=== PATIENT | female | born 1965 | race Caucasian/White ===

== ENCOUNTER → 2021-09-23 | Outpatient (CLI) | payer OTHER ==
--- NOTE | 2021-09-24 13:50 | MM ---
Reason for exam: screening (asymptomatic). Baseline mammogram. History: Patient is postmenopausal and is nulliparous. Physical Findings: Nurse did not find any significant physical abnormalities on exam. MG Screening Mammo w CAD Bilateral CC, MLO, and XCCL view(s) were taken. There are scattered fibroglandular densities. Finding: There is a 6 mm circumscribed oval mass located 7 cm from the nipple in the upper outer quadrant, posterior, middle position of the right breast. There is no discrete abnormality on the left breast. ASSESSMENT: Incomplete: need additional imaging evaluation, BI-RAD 0 RECOMMENDATION: Ultrasound of the right breast. [facility] will attempt to contact patient to return for ultrasound.
== END | disposition home or self-care (01) ==
LOC: RADMAMWWP 09:14
PROVIDERS: ATTEND Family Medicine
DX: Z12.31 Encounter for screening mammogram for malignant neoplasm of breast (principal); Z78.0 Asymptomatic menopausal state
CPT/HCPCS: 77067

== ENCOUNTER → 2021-10-02 | Outpatient (CLI) | payer OTHER ==
--- NOTE | 2021-10-02 10:22 | USB ---
Reason for exam: additional evaluation requested from abnormal screening. History: Patient is postmenopausal and is nulliparous. Physical Findings: Breast exam preformed at baseline screening. US Breast Workup Limited RT Technologist: Carlyn Ceballos Right limited breast ultrasound including focal area of concern, retroareolar and axilla demonstrates no cystic or solid lesion seen. Given mammographic abnormality stereotactic core biopsy recommended. These results were verbally communicated with the patient and result sheet given to the patient on 10/02/21. ASSESSMENT: Suspicious, BI-RAD 4 RECOMMENDATION: Stereotactic core biopsy of the right breast. Called Dr. Arana's office with mammographic findings and has scheduled an appointment for the patient for 11/19/21 at 8:[address] Husain. Biopsy scheduled for 10/26/21 at 8:00. PRELIMINARY REPORT CALLED AND FAXED TO DR. HUSAIN ON 10/02/21.
== END | disposition home or self-care (01) ==
LOC: RADUSWWP 07:43
PROVIDERS: ATTEND Family Medicine
DX: R92.8 Other abnormal and inconclusive findings on diagnostic imaging of breast (principal); Z78.0 Asymptomatic menopausal state

== ENCOUNTER → 2021-10-26 | Day surgery (SDC) | payer OTHER ==
[2021-10-26 07:22] VITALS: RESP 16
[2021-10-26 08:36] VITALS: BP 130/86; PULSE 79; TEMP 98.1
--- NOTE | 2021-10-26 19:07 | MM ---
EXAMINATION TYPE: MG stereo VAD BX RT DATE OF EXAM: 10/26/2021 COMPARISON: 09/23/2021 and 10/02/2021 CLINICAL HISTORY: 56-year-old female R92.8, referred for stereotactic biopsy of 9:00 right breast mass. TECHNIQUE: Stereotactic guided core biopsy of the right breast. FINDINGS: Initial lateral view was performed for more accurate localization of the mass. The procedure of stereotactic guided core biopsy was explained to the patient. Benefits, alternatives, and risks were discussed. An informed consent was then obtained. [facility] Shortness pathway was a lateral approach. I performed the localization followed by the remainder of the procedure. A vacuum assisted biopsy gun was used to obtain 6 core samples. The patient tolerated the procedure well. The procedure was complicated by some access bleeding and approximately 3.0 cm hematoma formation at the site of biopsy. Nursing manage the patient and held prolonged pressure to minimize hematoma. No other complication occurred. The patient was kept in the radiology department for short stay after the procedure and then discharged home in stable condition. Specimen mammogram shows some densities within the specimens that suggests adequate sampling. Postbiopsy mammogram shows that 2.5 to 3.0 cm hematoma at the 8 to 9:00 position. Suspect slight anterior displacement of clip from hematoma. IMPRESSION: SUCCESSFUL, STEREOTACTIC GUIDED CORE BIOPSY OF 9:00 RIGHT BREAST MASS, POSSIBLE INTRAMAMMARY LYMPH NODE. NOTE THAT THE PROCEDURE WAS COMPLICATED BY A 2.5 X 3.0 CM HEMATOMA THAT SEEMS TO HAVE DISPLACED THE CLIP SLIGHTLY ANTERIORLY. PATHOLOGY RESULTS TO FOLLOW. Pathology Results: Benign RIGHT BREAST, 9:00 POSITION, CORE BIOPSY: Benign fibroadipose tissue with focal reactive lymphoid tissue. Lymphoid tissue negative for features of metastatic carcinoma (see note). Recommendation Follow up mammogram of the right breast in 6 months. MARY JANE
== END | disposition home or self-care (01) ==
LOC: RADMAMWWP 06:57
PROVIDERS: ATTEND Surgery
DX: N63.15 Unspecified lump in the right breast, overlapping quadrants (principal); L76.32 Postprocedural hematoma of skin and subcutaneous tissue following other procedure; R92.8 Other abnormal and inconclusive findings on diagnostic imaging of breast
CPT/HCPCS: 88305; 88342; 88341; 19081; A4648; J2001

== ENCOUNTER → 2022-05-04 | Outpatient (CLI) | payer OTHER ==
--- NOTE | 2022-05-04 09:03 | MM ---
Reason for Exam: Follow-up at short interval from prior study. Last screening mammogram was performed 7 month(s) ago. Patient History: Menarche at age 14. Patient has no children. Postmenopausal. 10/26/2021, Benign Core Biopsy on the right side. Risk Values: Violette 5 year model risk: 1.6%. NCI Lifetime model risk: 10.4%. Prior Study Comparison: 09/23/2021 Bilateral Screening Mammogram, [facility]. 10/02/2021 Right Diagnostic Ultrasound, [facility]. Tissue Density: Right: There are scattered fibroglandular densities. Findings: Analyzed By CAD. Microclip marker upper outer right breast. No evidence for mass or distortion. No suspicious clusters of microcalcifications. Overall Assessment: Benign, BI-RAD 2 Management: Screening Mammogram of both breasts in 6 months. A clinical breast exam by your physician is recommended on an annual basis and results should be correlated with mammographic findings. This exam should not preclude additional follow-up of suspicious palpable abnormalities. Results were given to the patient verbally at the time of exam. Electronically signed and approved by: Giancarlo Lee M.D. Radiologis
== END | disposition home or self-care (01) ==
LOC: RADMAMWWP 08:36
PROVIDERS: ATTEND Surgery
DX: R92.8 Other abnormal and inconclusive findings on diagnostic imaging of breast (principal); Z78.0 Asymptomatic menopausal state
CPT/HCPCS: 77065

== ENCOUNTER → 2022-10-22 | Outpatient (CLI) | payer OTHER ==
--- NOTE | 2022-10-25 09:23 | MM ---
Reason for Exam: Screening (asymptomatic). Last mammogram was performed 1 year(s) and 1 month(s) ago. Patient History: Menarche at age 14. Patient has no children. Postmenopausal. 10/26/2021, Benign Core Biopsy on the right side. Risk Values: Violette 5 year model risk: 1.6%. NCI Lifetime model risk: 10.4%. Prior Study Comparison: 09/23/2021 Bilateral Screening Mammogram, [facility]. 05/04/2022 Right MG diagnostic mammo RT w CAD, [facility]. Tissue Density: There are scattered fibroglandular densities. Findings: Analyzed By CAD. There is mammotome biopsy clip in the right breast upper outer aspect redemonstrated and tortuous vessel. There is new 8mm focal asymmetry anterior to this on CC view only that warrants further workup. No corresponding abnormality seen on MLO view. Overall Assessment: Incomplete: need additional imaging evaluation, BI-RAD 0 Management: Diagnostic Mammogram of the right breast. Return for additional spot CC view and true lateral view right breast. Electronically signed and approved by: Wood Nelson M.D.
== END | disposition home or self-care (01) ==
LOC: RADMAMWWP 08:38
PROVIDERS: ATTEND Surgery
DX: Z12.31 Encounter for screening mammogram for malignant neoplasm of breast (principal); Z78.0 Asymptomatic menopausal state
CPT/HCPCS: 77067

== ENCOUNTER → 2022-10-26 | Outpatient (CLI) | payer OTHER ==
--- NOTE | 2022-10-26 09:23 | MM ---
Reason for Exam: Additional evaluation requested from abnormal screening. Last screening mammogram was performed less than 1 month ago. Patient History: Menarche at age 14. Patient has no children. Postmenopausal. 10/26/2021, Benign Core Biopsy on the right side. Risk Values: Violette 5 year model risk: 1.6%. NCI Lifetime model risk: 10.4%. Prior Study Comparison: 09/23/2021 Bilateral Screening Mammogram, [facility]. 10/02/2021 Right Diagnostic Ultrasound, [facility]. 05/04/2022 Right MG diagnostic mammo RT w CAD, [facility]. 10/22/2022 Bilateral MG screening mammo w CAD, [facility]. Tissue Density: Right: There are scattered fibroglandular densities. Findings: Analyzed By CAD. Under compression and no persistent suspicious nodularity is evident. Mediolateral view appears unremarkable. Overall Assessment: Negative, BI-RAD 1 Management: Screening Mammogram of both breasts in 1 year. A clinical breast exam by your physician is recommended on an annual basis and results should be correlated with mammographic findings. This exam should not preclude additional follow-up of suspicious palpable abnormalities. Results were given to the patient verbally at the time of exam. Electronically signed and approved by: Christopher Mendoza D.O. Radiologis
== END | disposition home or self-care (01) ==
LOC: RADMAMWWP 08:47
PROVIDERS: ATTEND Surgery
DX: R92.8 Other abnormal and inconclusive findings on diagnostic imaging of breast (principal); Z78.0 Asymptomatic menopausal state; Z98.890 Other specified postprocedural states
CPT/HCPCS: 77061; 77065

== ENCOUNTER → 2023-10-28 | Outpatient (CLI) | payer OTHER ==
--- NOTE | 2023-11-02 09:32 | MM ---
Reason for Exam: Screening (asymptomatic). Last screening mammogram was performed 12 month(s) ago. Patient History: Menarche at age 14. Patient has no children. Postmenopausal. 10/26/2021, Benign Core Biopsy on the right side. Risk Values: Violette 5 year model risk: 1.7%. NCI Lifetime model risk: 10.2%. Prior Study Comparison: 09/23/2021 Bilateral Screening Mammogram, [facility]. 05/04/2022 Right MG diagnostic mammo RT w CAD, [facility]. 10/22/2022 Bilateral MG screening mammo w CAD, [facility]. 10/26/2022 Right MG 3D work up w/cad RT, [facility]. Tissue Density: There are scattered areas of fibroglandular density. Findings: Analyzed By CAD. There is no suspicious group of microcalcifications or new suspicious mass in either breast. Biopsy surgical clip right breast. Benign calcifications. Overall Assessment: Benign, BI-RAD 2 Management: Screening Mammogram of both breasts in 1 year. . Patient should continue monthly self-breast exams. A clinical breast exam by your physician is recommended on an annual basis. This exam should not preclude additional follow-up of suspicious palpable abnormalities. Note on Violette scores and lifetime risk: 1. A Violette score greater than 3% is considered moderate risk. If this is the case, consider specialist referral to assess eligibility for a risk reducing agent. 2. If overall lifetime risk for the development of breast cancer is 20% or higher, the patient may qualify for future screening with alternating mammogram and breast MRI. Electronically signed and approved by: Nish Rosenberg M.D. Radiologis
== END | disposition home or self-care (01) ==
LOC: RADMAMWWP 09:01
PROVIDERS: ATTEND Family Medicine
DX: Z12.31 Encounter for screening mammogram for malignant neoplasm of breast (principal); Z78.0 Asymptomatic menopausal state
CPT/HCPCS: 77063; 77067

== ENCOUNTER → 2024-10-31 | Outpatient (CLI) | payer OTHER ==
--- NOTE | 2024-10-31 10:35 | MM ---
Reason for Exam: Screening (asymptomatic). Last screening mammogram was performed 12 month(s) ago. Patient History: Menarche at age 14. Patient has no children. Postmenopausal. Patient used Hormonal Contraceptives for 3 years. 10/26/2021, Benign Core Biopsy on the right side. Risk Values: Violette 5 year model risk: 1.8%. NCI Lifetime model risk: 10.0%. Prior Study Comparison: 10/22/2022 Bilateral MG screening mammo w CAD, [facility]. 10/26/2022 Right MG 3D work up w/cad RT, [facility]. 10/28/2023 Bilateral MG 3D screening mammo w/cad, [facility]. Tissue Density: There are scattered areas of fibroglandular density. Findings: Analyzed By CAD. There is no suspicious group of microcalcifications or new suspicious mass in either breast. Surgical clip is seen in the right breast stable appearing axillary lymph nodes. No suspicious calcifications. Overall Assessment: Benign, BI-RAD 2 Management: Screening Mammogram of both breasts in 1 year. . Patient should continue monthly self-breast exams. A clinical breast exam by your physician is recommended on an annual basis. This exam should not preclude additional follow-up of suspicious palpable abnormalities. Note on Violette scores and lifetime risk: 1. A Violette score greater than 3% is considered moderate risk. If this is the case, consider specialist referral to assess eligibility for a risk reducing agent. 2. If overall lifetime risk for the development of breast cancer is 20% or higher, the patient may qualify for future screening with alternating mammogram and breast MRI. [facility], , 10/31/2024 10:32 AM. Electronically signed and approved by: Nish Rosenberg M.D. Radiologis
--- NOTE | 2024-10-31 11:50 | BD ---
EXAMINATION TYPE: Axial Bone Density DATE OF EXAM: 10/31/2024 CLINICAL HISTORY: 59 years old Female. ICD-10 CODE: N95.1 POSTMENOPAUSAL , Additional History: Height: 62 in Weight: 187 lbs EXAM MEASUREMENTS: Bone mineral densitometry was performed using the [employer]. Bone mineral density as measured about the Lumbar spine is: ----- L1-L4(G/cm2): 1.099 T Score Values are as follows: ----- L1: -0.4 ----- L2: -1.4 ----- L3: -0.2 ----- L4: -0.8 ----- L1-L4: -0.7 Z Score Values are as follows: ----- L1: 0.1 ----- L2: -0.9 ----- L3: 0.2 ----- L4: -0.4 ----- L1-L4: -0.3 Bone mineral density baseline Bone mineral density about the R hip (g/cm2): 0.819 Bone mineral density about the L hip (g/cm2): 0.850 T Score values are as follows: -----R Neck: -2.0 -----L Neck: -2.0 -----R Total: -1.5 -----L Total: -1.3 Z Score values are as follows: -----R Neck: -1.3 -----L Neck: -1.3 -----R Total: -1.1 -----L Total: -0.9 Bone mineral density baseline FRAX%s: The graph provided illustrates a 8.6% chance for a major osteoporotic fx and a 1.0% chance fo r the hips probability for fx in 10 years time. IMPRESSION: Osteopenia (T Score between -2.5 and -1). There is slightly increased risk of fracture and the patient may be considered for treatment. Re-Screen 2-5 years. NOTE: T-SCORE=SD OF THE YOUNG ADULT MEAN. [facility], , 10/31/2024 11:47 AM
== END | disposition home or self-care (01) ==
LOC: RADMAMWWP 09:12
PROVIDERS: ATTEND Family Medicine
DX: Z12.31 Encounter for screening mammogram for malignant neoplasm of breast (principal); R92.323 Mammographic fibroglandular density, bilateral breasts; Z78.0 Asymptomatic menopausal state; Z92.0 Personal history of contraception; M85.89 Other specified disorders of bone density and structure, multiple sites
CPT/HCPCS: 77063; 77067; 77080